=== PATIENT | female | born 1955 | race Caucasian/White ===

== ENCOUNTER 2017-02-05 12:12 | Outpatient (CLI) | payer OTHER ==
[2012-10-09 13:34] VITALS: BP 111/55
[2017-02-05 12:37] LABS: BASOPHILS % 0.5 (0.0-1.5); EOSINOPHILS % 1.4 % (0.0-6.8); MEAN CORPUSCULAR HEMOGLOBIN 27.6 pg (28.0-34.0); MEAN CORPUSCULAR VOLUME 89.4 fl (80.0-100.0); MONOCYTES % 3.4 % (0.0-11.0); NEUTROPHILS # 8.7 # k/uL (1.4-7.7)
[2017-02-05 13:02] LABS: eGFR (African) > 60; eGFR (Non-African) > 60
== END 2017-02-05 12:13 ==
LOC: LAB 12:12
PROVIDERS: ATTEND Family Medicine
DX: R42 Dizziness and giddiness (principal); E78.2 Mixed hyperlipidemia
CPT/HCPCS: 36415; 80053; 80061; 85025